=== PATIENT | male | born 1945 | race Native Hawaiian/Other Pacific Islander ===

== ENCOUNTER 2016-07-01 10:52 | Inpatient (IN) | payer OTHER, BC ==
[~2016-07-01] VITALS: Ht 180.3 cm; Wt 98.4 kg
[~2016-07-01 10:52] MED LIST: ACET7.5T70 PO; ASA LO-DOSE81 MG PO; ATEN50TA36 PO; ATROVENT NAS0.06 %; BAYER ASPIRIN E81 MG PO; CARDURA4 MG PO; CELE200C2 PO; CENTRUM SILVER1 TAB PO; CRESTOR20 MG PO; CYCL10TA35 PO; DUTA0.5C PO; ESCITALOPRAM10 MG PO; FENOFIBRATE43 MG PO; FLUT0.05 NAS; GABA100C2 PO; HYDR10TA47 PO; LEVO0.0218 PO; LIPITOR40 MG PO; LISI10TA11 PO; METO25TA2 PO; METOCLOPRAM10 MG PO; NEURONTIN 100M100 MG PO; OMEGA OR; PANT40TA PO; RLFLU500T PO; TAMS0.4C PO; WARF4TAB7 PO; WARF5TAB6 PO; WARFARIN3 MG PO; WARFARIN4 MG PO; [UNRECOGNIZED DRUG - OTHER] OR
[2016-07-01 12:19] VITALS: BP 139/75; TEMP 98.7; Ht 180.3 cm; Wt 98.4 kg
[2016-07-01 13:08] LABS: POTASSIUM 3.6 mmol/L (3.6-5.2)
[2016-07-01] MEDS ORDERED: OSEL75CA PO (13:22)
[2016-07-01] MEDS ORDERED: TESSALON PER100 MG PO (13:22)
[2016-07-01] MEDS ORDERED: WARF3TAB12 PO (13:27)
[2016-07-01 13:32] LABS: PLATELET COUNT 227 K/uL (142-355)
[2016-07-01 16:00] VITALS: BP 1141/65; TEMP 98.5
[2016-07-01 20:00] VITALS: BP 121/59; TEMP 98.8
[2016-07-02] VITALS: BP 124/62; TEMP 98
[2016-07-02 04:00] VITALS: BP 122/69; TEMP 97.9
[2016-07-02 05:20] LABS: PLATELET COUNT 272 K/uL (142-355)
[2016-07-02 05:51] LABS: POTASSIUM 3.4 mmol/L (3.6-5.2); SODIUM 131 mmol/L (136-145)
[2016-07-02 08:00] VITALS: BP 135/72; TEMP 98
[2016-07-02 12:00] VITALS: BP 112/64; TEMP 98.6
[2016-07-02 16:00] VITALS: BP 135/69; TEMP 97.6
[2016-07-02 20:00] VITALS: BP 141/75; TEMP 98.4
[2016-07-03 00:19] VITALS: BP 94/49; TEMP 98.4
[2016-07-03 05:32] LABS: PLATELET COUNT 272 K/uL (142-355)
[2016-07-03 05:54] VITALS: BP 123/75; TEMP 98.3
[2016-07-03 05:59] LABS: POTASSIUM 3.3 mmol/L (3.6-5.2); SODIUM 132 mmol/L (136-145)
[2016-07-03 08:00] VITALS: BP 116/61; TEMP 97.7
--- NOTE | 2016-07-03 08:46 | NUR ---
0816 DR SANTOS INFORMED OF LABS FROM THIS AM. NEW ORDERS GIVEN AND WRITTEN. PT AND INFORMED
[2016-07-03 12:00] VITALS: BP 116/59; TEMP 97.9
[2016-07-03 16:20] VITALS: BP 121/62; TEMP 97.6
[2016-07-03 20:00] VITALS: BP 119/68; TEMP 97.9
--- NOTE | 2016-07-03 22:50 | NUR ---
INFORMED OF CT RESULTS STATED TO D/C FLUIDS AT THIS TIME.
[2016-07-04] VITALS (7 sets, daily range): BP systolic 101–123; BP diastolic 52–75; TEMP 97.6–98.4
[2016-07-04 04:27] LABS: PLATELET COUNT 331 K/uL (142-355)
[2016-07-04 04:43] LABS: POTASSIUM 3.5 mmol/L (3.6-5.2); SODIUM 134 mmol/L (136-145)
[2016-07-05] VITALS: BP 120/68; TEMP 97.8
[2016-07-05 04:00] VITALS: BP 127/71; TEMP 97.9
[2016-07-05 04:34] LABS: PLATELET COUNT 380 K/uL (142-355)
[2016-07-05 05:05] LABS: POTASSIUM 3.7 mmol/L (3.6-5.2); SODIUM 137 mmol/L (136-145)
[2016-07-05 08:00] VITALS: BP 137/83; TEMP 98.2
[2016-07-05 12:00] VITALS: BP 118/75; TEMP 97.5
[2016-07-05 16:00] VITALS: BP 138/76; TEMP 97.2
[2016-07-05 20:00] VITALS: BP 149/93; TEMP 98.4
[2016-07-06] VITALS: BP 103/58; TEMP 97.6
[2016-07-06 04:00] VITALS: BP 129/81; TEMP 98
[2016-07-06 05:17] LABS: PLATELET COUNT 359 K/uL (142-355)
[2016-07-06 05:32] LABS: POTASSIUM 3.4 mmol/L (3.6-5.2); SODIUM 136 mmol/L (136-145)
[2016-07-06 08:00] VITALS: BP 150/86; TEMP 98.6
[2016-07-06 12:00] VITALS: BP 147/79; TEMP 98.4
--- NOTE | 2016-07-06 14:39 | NUR ---
1430-IV SITE D/C'D WITH TIP INTACT AND SITE CARE DONE. D/C INSTRUCTIONS GIVEN TO PT AND HE VERBALIZES UNDERSTANDING. PT OUT VIA W/C PER PCT WITH NAD.
== END 2016-07-06 15:05 | disposition home or self-care (01) | DRG 194 ==
LOC: MED/SURG 10:52
PROVIDERS: ADMIT Family Medicine
DX: J10.08 Influenza due to other identified influenza virus with other specified pneumonia (principal); N39.0 Urinary tract infection, site not specified; Z79.01 Long term (current) use of anticoagulants; R53.81 Other malaise; E86.0 Dehydration; I48.91 Unspecified atrial fibrillation; E11.9 Type 2 diabetes mellitus without complications; I10 Essential (primary) hypertension; J44.9 Chronic obstructive pulmonary disease, unspecified
CPT/HCPCS: 36415; 36591; 80053; 83735; 83880; 84100; 85007; 85027; 85610; 87040; 87045; 87205; 87328; 87329; 87798; 87899; 94640; 94664; 94668; 94760; 96365; 96366; 96367; J1940; J2930; Q9963

== ENCOUNTER 2016-11-06 08:54 | Outpatient (CLI) | payer OTHER, BC ==
[~2016-11-06 08:54] MED LIST changes: +OSEL75CA PO; +TESSALON PER100 MG PO; +WARF3TAB12 PO
[2016-11-06 09:22] LABS: PLATELET COUNT 243 K/uL (142-355)
[2016-11-06 09:31] LABS: POTASSIUM 4.1 mmol/L (3.6-5.2)
[2016-11-06 09:35] LABS: PARTIAL THROMBOPLASTIN TIME 33.4 SECONDS (24.5-33.6)
== END 2016-11-06 10:00 | disposition home or self-care (01) ==
LOC: LABW 08:54
PROVIDERS: Family Medicine
DX: K92.2 Gastrointestinal hemorrhage, unspecified (principal)
CPT/HCPCS: 36415; 80053; 81000; 82272; 85027; 85610; 85730

== ENCOUNTER 2016-11-07 14:18 | Outpatient (CLI) | payer OTHER, BC | END 2016-11-07 19:30 | disposition home or self-care (01) | LOC: LAB 14:18 | DX: K92.2 Gastrointestinal hemorrhage, unspecified (principal) | CPT/HCPCS: 82272 ==

== ENCOUNTER 2016-11-30 14:37 | Outpatient (CLI) | payer OTHER, BC | END 2016-11-30 19:57 | disposition home or self-care (01) | LOC: LABW 14:37 | DX: Z87.01 Personal history of pneumonia (recurrent) (principal) | CPT/HCPCS: 36415; 82784; 82785 ==

== ENCOUNTER 2017-03-27 10:38 | Outpatient (CLI) | payer OTHER, BC | END 2017-03-27 19:17 | disposition home or self-care (01) | LOC: RAD 10:38 | DX: K56.0 Paralytic ileus (principal) | CPT/HCPCS: 74022 ==

== ENCOUNTER 2017-09-06 10:39 | Outpatient (CLI) | payer OTHER, BC ==
[2017-09-06 11:20] LABS: POTASSIUM 4.2 mmol/L (3.6-5.2)
== END 2017-09-06 20:33 | disposition home or self-care (01) ==
LOC: RAD 10:39
PROVIDERS: Nurse Practitioner Family
DX: K57.52 Diverticulitis of both small and large intestine without perforation or abscess without bleeding (principal)
CPT/HCPCS: 36415; 80053; Q9963

== ENCOUNTER 2018-07-05 21:12 | Outpatient (CLI) | payer OTHER, BC | END 2018-07-05 22:30 | LOC: LAB 21:12 | DX: Z79.01 Long term (current) use of anticoagulants (principal) | CPT/HCPCS: 85610 ==

== ENCOUNTER 2018-08-18 17:53 | Emergency (ER) | payer OTHER, BC ==
[~2018-08-18] VITALS: Ht 180.3 cm; Wt 97.5 kg
[2018-08-18 18:11] LABS: PLATELET COUNT 260 K/uL (142-355)
[2018-08-18 18:15] LABS: POTASSIUM 4.1 mmol/L (3.6-5.2); SODIUM 135 mmol/L (136-145)
[2018-08-18 18:37] LABS: PARTIAL THROMBOPLASTIN TIME 22.3 SECONDS (24.5-33.6)
[2018-08-18 22:17] VITALS: BP 107/71; TEMP 97.7
== END 2018-08-18 22:25 | disposition short-term general hospital (02) ==
LOC: ED 17:53
PROVIDERS: Family Medicine
DX: R07.89 Other chest pain (principal); I21.4 Non-ST elevation (NSTEMI) myocardial infarction; I48.91 Unspecified atrial fibrillation
CPT/HCPCS: 36415; 80053; 82550; 82553; 83880; 84443; 84484; 85027; 85379; 85610; 85730; 93005; 96360; 96361; 96372; 99285; J1650; Q9963

== ENCOUNTER 2018-08-18 22:26 | Outpatient (CLI) | payer OTHER, BC | END 2018-08-18 23:02 | disposition short-term general hospital (02) | LOC: AMB 22:26 | DX: I21.4 Non-ST elevation (NSTEMI) myocardial infarction (principal); I48.91 Unspecified atrial fibrillation; R07.89 Other chest pain | CPT/HCPCS: A0425; A0427 ==

== ENCOUNTER 2018-08-26 09:24 | Outpatient (CLI) | payer OTHER, BC ==
[2018-08-26 09:42] LABS: PLATELET COUNT 279 K/uL (142-355)
[2018-08-26 09:59] LABS: POTASSIUM 4.8 mmol/L (3.6-5.2)
== END 2018-08-26 21:03 | disposition home or self-care (01) ==
LOC: LABW 09:24
PROVIDERS: Family Medicine
DX: R53.1 Weakness (principal); R25.2 Cramp and spasm
CPT/HCPCS: 80053; 81000; 82550; 83605; 83735; 83880; 84100; 84484; 85027; 85379

== ENCOUNTER 2018-08-26 11:15 | Outpatient (CLI) | payer OTHER, BC | END 2018-08-26 11:25 | disposition short-term general hospital (02) | LOC: AMB 11:15 | DX: R06.02 Shortness of breath (principal); R25.2 Cramp and spasm | CPT/HCPCS: A0425; A0427 ==

== ENCOUNTER 2018-08-26 11:27 | Emergency (ER) | payer OTHER, BC ==
[~2018-08-26] VITALS: Ht 180.3 cm; Wt 97.5 kg
[2018-08-26 12:46] VITALS: BP 120/97; TEMP 97.5
[2018-08-26 13:11] LABS: PARTIAL THROMBOPLASTIN TIME > 192.0 SECONDS (24.5-33.6)
== END 2018-08-26 13:00 | disposition short-term general hospital (02) ==
LOC: ED 11:27
PROVIDERS: Family Medicine
DX: I48.92 Unspecified atrial flutter (principal); I48.91 Unspecified atrial fibrillation; I22.9 Subsequent ST elevation (STEMI) myocardial infarction of unspecified site; Z98.890 Other specified postprocedural states
CPT/HCPCS: 85610; 85730; 93005; 96361; 96365; 96375; 99285; J1644

== ENCOUNTER 2018-09-04 12:17 | Emergency (ER) | payer OTHER, BC ==
[~2018-09-04] VITALS: Ht 180.3 cm; Wt 97.5 kg
[2018-09-04 12:26] VITALS: TEMP 97.7
[2018-09-04] MEDS ORDERED: K-TAB20 MEQ PO (12:28)
[2018-09-04] MEDS ORDERED: SPIRONOLACT25 MG PO (12:28)
[2018-09-04] MEDS ORDERED: FUROSEMIDE40 MG PO (12:29)
[2018-09-04] MEDS ORDERED: METOPROLOL25 M1 PO (12:29)
[2018-09-04] MEDS ORDERED: BRILINTA90 MG PO (12:30)
[2018-09-04] MEDS ORDERED: NEXIUM20 M1 PO (12:31)
[2018-09-04] MEDS ORDERED: LIPITOR40 MG PO (12:32)
[2018-09-04] MEDS ORDERED: NITR0.4S2 SL (12:32)
[2018-09-04] MEDS ORDERED: LISI5TAB10 PO (12:33)
[2018-09-04] MEDS ORDERED: EQ STOOL SOFTE100 MG PO (12:33)
[2018-09-04 12:50] LABS: PLATELET COUNT 277 K/uL (142-355)
[2018-09-04 14:30] VITALS: BP 100/67
== END 2018-09-04 15:00 | disposition short-term general hospital (02) ==
LOC: ED 12:17
PROVIDERS: Family Medicine
DX: E87.1 Hypo-osmolality and hyponatremia (principal); E86.0 Dehydration; R55 Syncope and collapse; I48.91 Unspecified atrial fibrillation; I48.92 Unspecified atrial flutter; Z98.890 Other specified postprocedural states
CPT/HCPCS: 80053; 82550; 84484; 85027; 93005; 96360; 99284

== ENCOUNTER 2019-02-20 15:50 | Outpatient (CLI) | payer OTHER, BC ==
[~2019-02-20 15:50] MED LIST changes: +BRILINTA90 MG PO; +EQ STOOL SOFTE100 MG PO; +FUROSEMIDE40 MG PO; +K-TAB20 MEQ PO; +LISI5TAB10 PO; +METOPROLOL25 M1 PO; +NEXIUM20 M1 PO; +NITR0.4S2 SL; +SPIRONOLACT25 MG PO
== END 2019-02-20 21:27 | disposition home or self-care (01) ==
LOC: LAB 15:50
DX: M79.602 Pain in left arm (principal)
CPT/HCPCS: 84484

== ENCOUNTER 2019-04-24 09:35 | Inpatient (IN) | payer OTHER, BC ==
[~2019-04-24] VITALS: Ht 177.8 cm; Wt 100.9 kg
[2019-04-24 11:08] LABS: PLATELET COUNT 251 K/uL (142-355)
[2019-04-24 13:45] VITALS: BP 106/73; TEMP 97.6; Ht 177.8 cm; Wt 100.9 kg
[2019-04-24] MEDS ORDERED: LORADAMED10 MG PO (14:00)
[2019-04-24] MEDS ORDERED: SOD CHLORIDE1 GM PO ×2 (14:02→14:22)
[2019-04-24] MEDS ORDERED: WARF5TAB6 PO (14:05)
[2019-04-24] MEDS ORDERED: WARF2.5T8 PO (14:06)
[2019-04-24] MEDS ORDERED: LEXAPRO10 MG PO (14:07)
[2019-04-24] MEDS ORDERED: FURO20TA67 PO (14:08)
[2019-04-24] MEDS ORDERED: RAPAFLO8 MG PO (14:10)
[2019-04-24 16:00] VITALS: BP 114/64; TEMP 97.8
[2019-04-24 17:22] LABS: PARTIAL THROMBOPLASTIN TIME 36.4 SECONDS (24.5-33.6)
[2019-04-24 20:00] VITALS: BP 103/59; TEMP 98.5
[2019-04-24 23:52] VITALS: BP 95/59; TEMP 98.1
[2019-04-25 04:00] VITALS: BP 114/64; TEMP 97.8
[2019-04-25 05:23] LABS: PLATELET COUNT 206 K/uL (142-355)
[2019-04-25 05:38] LABS: POTASSIUM 4.3 mmol/L (3.6-5.2)
[2019-04-25 08:00] VITALS: BP 104/72; TEMP 97.3
[2019-04-25 12:00] VITALS: BP 122/74; TEMP 97.7
[2019-04-25 16:00] VITALS: BP 119/75; TEMP 97.5
[2019-04-25 20:06] VITALS: BP 97/59; TEMP 98
[2019-04-26] VITALS: BP 117/70; TEMP 98.1
[2019-04-26 03:49] LABS: PLATELET COUNT 214 K/uL (142-355)
[2019-04-26 04:00] VITALS: BP 114/75; TEMP 97.8
[2019-04-26 04:12] LABS: POTASSIUM 4.3 mmol/L (3.6-5.2)
[2019-04-26 08:00] VITALS: BP 125/72; TEMP 97.6
[2019-04-26 12:00] VITALS: BP 109/71; TEMP 98.2
== END 2019-04-26 21:04 | disposition home or self-care (01) | DRG 641 ==
LOC: MED/SURG 09:35
PROVIDERS: ADMIT Family Medicine
DX: E87.1 Hypo-osmolality and hyponatremia (principal); R19.7 Diarrhea, unspecified; R10.9 Unspecified abdominal pain; E83.42 Hypomagnesemia; I10 Essential (primary) hypertension; E11.9 Type 2 diabetes mellitus without complications; T45.515A Adverse effect of anticoagulants, initial encounter; J44.9 Chronic obstructive pulmonary disease, unspecified; I48.91 Unspecified atrial fibrillation
CPT/HCPCS: 36415; 80048; 80053; 81000; 82272; 82550; 83735; 83880; 84100; 84443; 85027; 85610; 85730; 87015; 87040; 87045; 87086; 87088; 87324; 87328; 87329; 87449; 87899; 93005; 94760; 96360; 96361; 96366; 96367; J0744

== ENCOUNTER 2019-05-29 15:14 | Outpatient (CLI) | payer OTHER, BC ==
[~2019-05-29] VITALS: Ht 177.8 cm; Wt 97.5 kg
[~2019-05-29 15:14] MED LIST changes: +FURO20TA67 PO; +LEXAPRO10 MG PO; +LORADAMED10 MG PO; +RAPAFLO8 MG PO; +SOD CHLORIDE1 GM PO; +WARF2.5T8 PO
[2019-05-29 16:13] LABS: PLATELET COUNT 233 K/uL (142-355)
[2019-05-29 16:54] LABS: POTASSIUM 4.6 mmol/L (3.6-5.2)
== END 2019-05-29 21:15 | disposition home or self-care (01) ==
LOC: INF 15:14
PROVIDERS: Family Medicine
DX: R06.02 Shortness of breath (principal); Z79.01 Long term (current) use of anticoagulants; E87.1 Hypo-osmolality and hyponatremia
CPT/HCPCS: 36415; 36591; 80053; 82550; 82553; 83880; 85027; 85610; 96360; 96361

== ENCOUNTER 2019-10-12 10:34 | Outpatient (CLI) | payer OTHER, BC | END 2019-10-12 23:14 | disposition home or self-care (01) | LOC: LABW 10:34 | DX: R06.09 Other forms of dyspnea (principal) ==

== ENCOUNTER 2020-01-26 08:00 | Emergency (ER) | payer OTHER, BC ==
[~2020-01-26] VITALS: Ht 177.8 cm; Wt 99.8 kg
[2020-01-26 08:14] VITALS: TEMP 98
[2020-01-26 08:55] LABS: POTASSIUM 4.6 mmol/L (3.6-5.2)
[2020-01-26 08:57] LABS: PLATELET COUNT 250 K/uL (142-355)
[2020-01-26 09:32] LABS: PARTIAL THROMBOPLASTIN TIME 36.3 SECONDS (24.5-33.6)
[2020-01-26 09:45] VITALS: BP 126/72
[2020-01-27] MEDS ORDERED: GENERLAC10 GM/15 M PO (17:55)
[2020-01-27] MEDS ORDERED: TAMS0.4C PO (17:56)
[2020-01-27] MEDS ORDERED: CIPR500T PO (17:56)
[2020-01-27] MEDS ORDERED: WARF2.5T8 PO (18:00)
[2020-01-27] MEDS ORDERED: ESCITALOPRAM10 MG PO (18:01)
[2020-01-27] MEDS ORDERED: CLOP75TA2 PO (18:01)
[2020-01-27] MEDS ORDERED: WARF5TAB6 PO (18:01)
[2020-01-27] MEDS ORDERED: FLONASE AL50 MCG/ACT INH (18:11)
== END 2020-01-26 09:45 | disposition home or self-care (01) ==
LOC: ED 08:00
PROVIDERS: Hospitalist
PROC: 0T9B70Z Drainage of Bladder with Drainage Device, Via Natural or Artificial Opening (ICD-10-PCS; principal; 2020-01-26)
DX: N40.1 Benign prostatic hyperplasia with lower urinary tract symptoms (principal); K59.09 Other constipation; Z79.01 Long term (current) use of anticoagulants
CPT/HCPCS: 36415; 51702; 80048; 81000; 85027; 85610; 85730; 99283

== ENCOUNTER 2020-08-24 08:42 | Outpatient (CLI) | payer BC ==
[~2020-08-24 08:42] MED LIST changes: +CIPR500T PO; +CLOP75TA2 PO; +FLONASE AL50 MCG/ACT INH; +GENERLAC10 GM/15 M PO
[2020-08-24 09:27] LABS: PLATELET COUNT 272 K/uL (142-355)
== END 2020-08-24 21:26 | disposition home or self-care (01) ==
LOC: RAD 08:42
PROVIDERS: ATTEND Nurse Practitioner Family
DX: J44.1 Chronic obstructive pulmonary disease with (acute) exacerbation (principal); E87.5 Hyperkalemia
CPT/HCPCS: 36415; 80053; 85027

== ENCOUNTER 2021-05-31 12:31 | Outpatient (CLI) | payer BC | END 2021-05-31 19:16 | disposition home or self-care (01) | LOC: LAB 12:31 | PROVIDERS: ATTEND Family Medicine | DX: R19.7 Diarrhea, unspecified (principal) | CPT/HCPCS: 83630; 87015; 87045; 87324; 87328; 87329; 87449; 87899 ==

== ENCOUNTER 2022-05-12 08:20 | Outpatient (CLI) | payer BC | END 2022-05-12 19:34 | disposition home or self-care (01) | LOC: LABW 08:20 | PROVIDERS: ATTEND Internal Medicine Critical Care Medicine | DX: D83.8 Other common variable immunodeficiencies (principal) | CPT/HCPCS: 36415; 82784; 82787 ==

== ENCOUNTER 2022-06-27 09:22 | Outpatient (CLI) | payer BC ==
[2022-06-27 09:51] LABS: PLATELET COUNT 250 K/uL (142-355)
[2022-06-27 09:56] LABS: POTASSIUM 4.3 mmol/L (3.6-5.2)
== END 2022-06-27 19:02 | disposition home or self-care (01) ==
LOC: RAD 09:22
PROVIDERS: ATTEND Nurse Practitioner Family
DX: I48.91 Unspecified atrial fibrillation (principal); I50.9 Heart failure, unspecified
CPT/HCPCS: 36415; 80053; 82550; 82553; 83880; 84484; 85027; 93005

== ENCOUNTER 2022-08-15 09:08 | Emergency (ER) | payer BC ==
[~2022-08-15] VITALS: Ht 177.8 cm; Wt 99.8 kg
[2022-08-15 09:32] VITALS: BP 141/79; TEMP 97.9
[2022-08-15 10:30] LABS: PLATELET COUNT 271 K/uL (142-355)
[2022-08-15 10:46] LABS: POTASSIUM 5.5 mmol/L (3.6-5.2)
== END 2022-08-15 14:05 | disposition short-term general hospital (02) ==
LOC: ED 09:08
PROVIDERS: Emergency Medicine Emergency Medical Services
DX: N17.9 Acute kidney failure, unspecified (principal); C78.39 Secondary malignant neoplasm of other respiratory organs
CPT/HCPCS: 36415; 36600; 80053; 81000; 82805; 83605; 83735; 83880; 84484; 85007; 85027; 85610; 93005; 94664; 96361; 96365; 99284; J2543; Q9963

== ENCOUNTER 2022-09-27 09:55 | Observation (INO) | payer BC ==
[~2022-09-27] VITALS: Ht 177.8 cm; Wt 97.1 kg
[~2022-09-27 09:55] MED LIST changes: -LISI5TAB10 PO; +NITROFURANTOIN100 M1 PO
[2022-09-27 11:18] LABS: PLATELET COUNT 279 K/uL (142-355)
[2022-09-27 11:26] LABS: POTASSIUM 5.4 mmol/L (3.6-5.2)
[2022-09-27] MEDS ORDERED: OXYB5TAB64 PO (13:13)
[2022-09-27] MEDS ORDERED: SPIRONOLACT25 MG PO (13:13)
[2022-09-27] MEDS ORDERED: ALLEGRA ALRG180 M1 PO (13:15)
[2022-09-27] MEDS ORDERED: FINA5TAB2 PO (13:15)
[2022-09-27] MEDS ORDERED: WARF4TAB7 PO (13:16)
[2022-09-27 13:17] VITALS: BP 97/57; TEMP 98.3; Ht 177.8 cm; Wt 97.1 kg
[2022-09-27] MEDS ORDERED: GRALISE600 MG PO ×2 (13:17)
[2022-09-27 16:00] VITALS: BP 116/69; TEMP 97.6
[2022-09-27 20:00] VITALS: BP 107/59; TEMP 98.3
[2022-09-28] VITALS (7 sets, daily range): BP systolic 109–143; BP diastolic 64–83; TEMP 97.8–98.9
[2022-09-29 04:00] VITALS: BP 147/86; TEMP 98
[2022-09-29 08:00] VITALS: BP 150/84; TEMP 97.8
[2022-09-29 08:15] LABS: PLATELET COUNT 261 K/uL (142-355)
[2022-09-29 08:43] LABS: POTASSIUM 6.1 mmol/L (3.6-5.2)
[2022-09-29 12:00] VITALS: BP 120/70; TEMP 98
[2022-09-29 16:00] VITALS: BP 122/67; TEMP 98.1
[2022-09-29 20:00] VITALS: BP 118/77; TEMP 98.3
[2022-09-29 23:41] VITALS: BP 131/76; TEMP 98.9
[2022-09-30 03:48] VITALS: BP 147/85; TEMP 97.5
[2022-09-30 08:00] VITALS: BP 131/78; TEMP 98.1
[2022-09-30 08:37] LABS: POTASSIUM 5.3 mmol/L (3.6-5.2)
[2022-09-30 08:42] LABS: PLATELET COUNT 253 K/uL (142-355)
== END 2022-09-30 13:40 | disposition home or self-care (01) ==
LOC: MED/SURG 09:55
PROVIDERS: Internal Medicine Endocrinology, Diabetes & Metabolism; ADMIT Internal Medicine; ATTEND Internal Medicine
DX: E87.1 Hypo-osmolality and hyponatremia (principal); D72.828 Other elevated white blood cell count; I95.1 Orthostatic hypotension; R53.83 Other fatigue; I48.91 Unspecified atrial fibrillation; Z79.01 Long term (current) use of anticoagulants; R42 Dizziness and giddiness; E87.5 Hyperkalemia; R06.09 Other forms of dyspnea; J44.9 Chronic obstructive pulmonary disease, unspecified; E86.0 Dehydration
CPT/HCPCS: 36415; 80048; 80053; 81002; 82533; 82550; 83605; 84145; 84443; 84484; 85027; 85610; 87040; 93005; 96360; 96361; 96365; 96375; 99220; 99221; G0378; G0379; J0696; J0834

== ENCOUNTER 2022-10-04 10:33 | Outpatient (CLI) | payer BC ==
[~2022-10-04 10:33] MED LIST changes: +ALLEGRA ALRG180 M1 PO; +FINA5TAB2 PO; +GRALISE600 MG PO; +OXYB5TAB64 PO
[2022-10-04 10:51] LABS: PLATELET COUNT 282 K/uL (142-355)
[2022-10-04 10:54] LABS: POTASSIUM 5.7 mmol/L (3.6-5.2)
== END 2022-10-04 19:09 | disposition home or self-care (01) ==
LOC: LABW 10:33
PROVIDERS: ATTEND Nurse Practitioner Family
DX: E87.5 Hyperkalemia (principal)
CPT/HCPCS: 36415; 80048; 85027

== ENCOUNTER 2022-10-05 09:21 | Outpatient (CLI) | payer BC ==
[2022-10-05 09:41] LABS: PLATELET COUNT 279 K/uL (142-355)
[2022-10-05 09:42] LABS: POTASSIUM 5.1 mmol/L (3.6-5.2)
== END 2022-10-05 18:52 | disposition home or self-care (01) ==
LOC: LABW 09:21
PROVIDERS: ATTEND Nurse Practitioner Family
DX: E87.5 Hyperkalemia (principal); Z79.899 Other long term (current) drug therapy
CPT/HCPCS: 36415; 80048; 83036; 85027

== ENCOUNTER 2022-10-19 09:38 | Outpatient (CLI) | payer BC | END 2022-10-19 18:59 | disposition home or self-care (01) | LOC: RAD 09:38 | PROVIDERS: ATTEND Nurse Practitioner Family | DX: S90.111A Contusion of right great toe without damage to nail, initial encounter (principal); Y92.89 Other specified places as the place of occurrence of the external cause ==

== ENCOUNTER 2022-11-22 10:59 | Outpatient (CLI) | payer BC | END 2022-11-22 20:24 | disposition home or self-care (01) | LOC: LABW 10:59 | PROVIDERS: ATTEND Internal Medicine Critical Care Medicine | DX: D83.8 Other common variable immunodeficiencies (principal) | CPT/HCPCS: 82784; 82787 ==

== ENCOUNTER 2022-12-06 12:19 | Outpatient (CLI) | payer BC ==
[2022-12-06 12:57] LABS: PLATELET COUNT 238 K/uL (142-355)
== END 2022-12-06 19:18 | disposition home or self-care (01) ==
LOC: LABW 12:19
PROVIDERS: ATTEND Family Medicine
DX: E87.5 Hyperkalemia (principal)
CPT/HCPCS: 36415; 80053; 85027

== ENCOUNTER 2022-12-08 08:23 | Emergency (ER) | payer BC ==
[~2022-12-08] VITALS: Ht 177.8 cm; Wt 99.8 kg
[2022-12-08 08:29] VITALS: BP 107/58; TEMP 98.6
[2022-12-08 09:27] LABS: PLATELET COUNT 258 K/uL (142-355)
[2022-12-08 09:33] LABS: POTASSIUM 4.3 mmol/L (3.6-5.2)
== END 2022-12-08 15:15 | disposition home or self-care (01) ==
LOC: ED 08:23
PROVIDERS: Family Medicine
DX: R53.1 Weakness (principal); E86.0 Dehydration
CPT/HCPCS: 36600; 80053; 81002; 82805; 83880; 84484; 85027; 93005; 99283

== ENCOUNTER 2023-06-01 13:49 | Outpatient (CLI) | payer BC ==
[~2023-06-01 13:49] MED LIST changes: +FLONASE AL50 MCG/ACT NAS; +HYDR5TAB9 PO; +IPRATROPIUM BROMIDE NAS; +MEDROL DOSEPAK4 MG PO; +META800T35 PO; +NYST100010 TOP; +PRESERVISION AREDS 2 PO; +SODIUM POLYSTYRENE SULFONATE PO; +TRIA0.1C5 TOP
[2023-06-01 14:19] LABS: PLATELET COUNT 244 K/uL (142-355)
[2023-06-01 14:21] LABS: POTASSIUM 4.2 mmol/L (3.6-5.2)
== END 2023-06-01 19:32 | disposition home or self-care (01) ==
LOC: US 13:49 → LABW 13:49 → RESP 13:49 → LABW 19:32
PROVIDERS: ATTEND Nurse Practitioner Family
DX: I73.9 Peripheral vascular disease, unspecified (principal); J44.1 Chronic obstructive pulmonary disease with (acute) exacerbation; A31.0 Pulmonary mycobacterial infection
CPT/HCPCS: 36415; 80053; 82550; 83880; 84484; 85027; 93005